=== PATIENT | female | born 1985 | race Caucasian/White ===

== ENCOUNTER 2021-10-26 08:28 | Outpatient (CLI) | payer OTHER | END 2021-10-26 08:29 | disposition home or self-care (01) | LOC: CSHULT 08:28 | PROVIDERS: ATTEND Family Medicine | DX: R10.13 Epigastric pain (principal) | CPT/HCPCS: 76700 ==

== ENCOUNTER 2022-04-14 14:52 | Outpatient (CLI) | payer OTHER | END 2022-04-14 14:53 | disposition home or self-care (01) | LOC: CSHLAB 14:52 | PROVIDERS: ATTEND Family Medicine | DX: Z20.822 Contact with and (suspected) exposure to COVID-19 (principal) | CPT/HCPCS: U0003; U0005 ==

== ENCOUNTER 2022-04-18 08:47 | Outpatient (CLI) | payer OTHER | END 2022-04-18 08:48 | disposition home or self-care (01) | LOC: CSHRAD 08:47 | PROVIDERS: ATTEND Family Medicine | DX: R10.13 Epigastric pain (principal); R19.8 Other specified symptoms and signs involving the digestive system and abdomen | CPT/HCPCS: 74246 ==